=== PATIENT | male | born 1975 ===

== ENCOUNTER → 2021-03-30 14:03 | Outpatient (CLI) | payer BC, SELFPAY ==
--- NOTE | 2021-03-30 | DI.RAD_ITS ---
Exam(s) XR THUMB LT EXAM: XR THUMB LT CLINICAL HISTORY: THUMB PAIN, M79.646 TECHNIQUE: COMPARISON: No exams were available for comparison FINDINGS: Three views were obtained. There is a soft tissue defect distal aspect. No underlying bony injury i s seen. IMPRESSION: RADIATION DOSE DELIVERED: Total DLP
== END ==
PROVIDERS: Visit Provider Physician Assistant
DX: M79.646 Pain in unspecified finger(s) (principal); M79.89 Other specified soft tissue disorders
CPT/HCPCS: 73140

== ENCOUNTER 2023-04-25 18:04 | Outpatient (REF) | payer BC, SELFPAY ==
[2023-04-25 18:51] LABS: HCT 46.1 % (40.0-50.0); HGB 15.6 g/dL (13.5-17.5); MCH 30.4 pg (27.0-33.0); MCHC 33.8 % (32.0-36.0); MCV 90 fL (80-95); MPV 10.9 fL (8.0-11.0); Platelet Count 195 10^3/uL (130-400); RBC 5.13 10^6/uL (4.36-5.78); RDW 12.2 % (11.8-14.1); WBC 5.49 10^3/uL (4.4-10.8)
[2023-04-25 19:05] LABS: ALT 46 U/L (16-63); AST 27 U/L (15-37); Albumin 4.3 g/dL (3.4-5.0); Alkaline Phosphatase 49 U/L (46-116); Anion Gap 10.5 mmol/L (3-11); BUN 13 mg/dL (7-18); Bilirubin, Total 0.9 mg/dL (0.2-1.0); CO2 28.5 mmol/L (21.0-32.0); CREATININE 0.8 mg/dL (0.70-1.30); Calcium 9.3 mg/dL (8.5-10.1); Calculated LDL 102 mg/dL (<100); Chloride 102 mmol/L (98-107); Cholesterol 192 mg/dL (<200); Estimated GFR 109.17 (mL/min/1.73m2); Glucose 93 mg/dL (74-106); HDL Cholesterol 57 mg/dL (40-60); Potassium 4.3 mmol/L (3.5-5.1); Sodium 141 mmol/L (136-145); Total Protein 7.4 g/dL (6.4-8.2); Triglyceride 166 mg/dL (<150)
[2023-04-25 19:17] LABS: Hemoglobin A1C 5.6 % (<5.7)
== END 2023-04-25 18:05 | disposition home or self-care (01) ==
LOC: NCHCN 18:04
PROVIDERS: Visit Provider Nurse Practitioner Family
DX: Z00.00 Encounter for general adult medical examination without abnormal findings (principal)
CPT/HCPCS: 80053; 80061; 85027; 83036

== ENCOUNTER 2025-01-14 16:25 | Outpatient (REF) | payer BC, SELFPAY ==
[2025-01-14 15:35] LABS: Hemoglobin A1C 5.4 % (<5.7)
[2025-01-14 15:41] LABS: ALT 47 U/L (16-63); AST 37 U/L (15-37); Albumin 4.3 g/dL (3.4-5.0); Alkaline Phosphatase 56 U/L (46-116); Anion Gap 13.5 mmol/L (3-11); BUN 16 mg/dL (7-18); Bilirubin, Total 0.8 mg/dL (0.2-1.0); CO2 27.5 mmol/L (21.0-32.0); Calcium 9.4 mg/dL (8.5-10.1); Calculated LDL 124 mg/dL (<100); Chloride 103 mmol/L (98-107); Cholesterol 229 mg/dL (<200); Estimated GFR 112.25 (mL/min/1.73m2); Glucose 90 mg/dL (74-106); HDL Cholesterol 62 mg/dL (>or=40); Potassium 3.7 mmol/L (3.5-5.1); Sodium 144 mmol/L (136-145); Total Protein 8.1 g/dL (6.4-8.2); Triglyceride 217 mg/dL (<150)
== END 2025-01-14 16:26 | disposition home or self-care (01) ==
LOC: NCHCN 16:25
PROVIDERS: Visit Provider Nurse Practitioner Family
DX: Z00.00 Encounter for general adult medical examination without abnormal findings (principal); Z13.1 Encounter for screening for diabetes mellitus
CPT/HCPCS: 80053; 80061; 83036